=== PATIENT | female | born 1980 | race Caucasian/White ===

== ENCOUNTER 2020-12-09 11:08 | Emergency (ER) | payer OTHER ==
[~2020-12-09] VITALS: Ht 157.5 cm; Wt 68.0 kg
[2020-12-09] MEDS ORDERED: OMEP20ER PO (11:31)
[2020-12-09] MEDS ORDERED: CITA20 PO (11:32)
[2020-12-09] MEDS ORDERED: CEPH500 PO (11:35)
== END 2020-12-09 11:43 | disposition home or self-care (01) ==
LOC: ER 11:08
DX: S80.862A Insect bite (nonvenomous), left lower leg, initial encounter (principal); W57.XXXA Bitten or stung by nonvenomous insect and other nonvenomous arthropods, initial encounter
CPT/HCPCS: 99282; J1100